=== PATIENT | male | born 1965 ===

== ENCOUNTER 2024-02-20 10:35 | Emergency (ER) | payer BC ==
[2024-02-20] MEDS ORDERED: Sodium Chloride 0.9% 10 ML Syringe FLUSH PRN (10:44)
[2024-02-20 10:56] LABS: BASOPHILS ABSOLUTE AUTO 0.02 K/uL (0.00-0.20); BASOPHILS PERCENT AUTO 0.5 % (0.0-2.0); EOSINOPHILS ABSOLUTE AUTO 0.11 K/uL (0.00-0.50); EOSINOPHILS PERCENT AUTO 2.9 % (0.0-5.0); HEMATOCRIT 42.5 % (39.0-49.0); HEMOGLOBIN 14.7 g/dL (13.1-16.8); LYMPHOCYTES ABSOLUTE AUTO 1.25 K/uL (0.50-3.50); LYMPHOCYTES PERCENT AUTO 33.3 % (10.0-50.0); MEAN CORPUSCULAR HEMOGLOBIN 33.9 pg (28.2-33.3); MEAN CORPUSCULAR HGB CONC 34.6 g/dL (31.7-36.0); MEAN CORPUSCULAR VOLUME 97.9 fL (84.0-98.0); MONOCYTES ABSOLUTE AUTO 0.84 K/uL (0.00-1.00); MONOCYTES PERCENT AUTO 22.4 % (2.0-14.0); NEUTROPHILS ABSOLUTE AUTO 1.53 K/uL (1.40-7.00); NEUTROPHILS PERCENT AUTO 40.9 % (45.0-80.0); PLATELET COUNT,PLT 178 K/uL (150-350); RED BLOOD CELL COUNT 4.34 M/uL (4.33-5.41); WHITE BLOOD CELL COUNT,WBC 3.8 K/uL (4.0-10.2)
[2024-02-20 11:15] LABS: ALANINE AMINOTRANSFERASE,ALT 79 U/L (12-78); ALBUMIN 3.5 g/dL (3.4-5.0); ALKALINE PHOSPHATASE 186 IU/L (46-116); ANION GAP 17.2 meq/L (7-15); ASPARTATE AMNIOTRANSFERASE,AST 184 U/L (15-37); BILIRUBIN TOTAL 0.5 mg/dL (0.2-1.0); BLOOD UREA NITROGEN,BUN 6 mg/dL (7-18); CALCIUM 8.2 mg/dL (8.5-10.1); CARBON DIOXIDE,CO2 25.1 mmol/L (21.0-32.0); CHLORIDE,CL 102 mmol/L (98-107); CREATININE 0.75 mg/dL (0.51-1.17); ESTIMATED GFR 105 mL/min (>=60); GLUCOSE RANDOM 121 mg/dL (70-99); POTASSIUM,K 3.3 mmol/L (3.5-5.1); PROTEIN TOTAL,TP 7.9 g/dL (6.4-8.2); SODIUM,NA 141 mmol/L (136-145)
[2024-02-20 11:22] LABS: PROTHROMBIN TIME 9.7 SEC (9.0-11.1)
[2024-02-20] MEDS: cloNIDine 0.1 MG Tab PO ONE (11:36)
[2024-02-20 11:38] LABS: PTT,PARTIAL THROMBOPLSTIN TIME 25.8 SEC (23.6-29.8)
[2024-02-20] MEDS: Thiamine 100 MG in Sodium Chloride 0.9% 100 ML IV ONE (12:19)
[2024-02-20] MEDS: Potassium Chloride 20 MEQ Tab.ER PO ONE (12:20)
[2024-02-20] MEDS: LORazepam 1 MG Tab PO ONE (12:21)
[2024-02-20] MEDS: Sodium Chloride 0.9% 1,000 ML IV ONE (12:21)
[2024-02-20] MEDS: Metoprolol Tartrate 25 MG Tab PO ONE (12:51)
[2024-02-20] MEDS: Metoprolol Succinate 50 MG Tab.ER PO ONE (14:34)
[2024-02-20] MEDS: PHENobarbital 64.8 MG Tab PO ONE (15:05)
[2024-02-20] MEDS: PHENobarbital 64.8 MG Tab PO SCH (15:52)
== END 2024-02-20 15:50 | disposition left against medical advice (07) ==
LOC: LL.ED 10:35
DX: G56.31 Lesion of radial nerve, right upper limb (principal); I10 Essential (primary) hypertension; F10.20 Alcohol dependence, uncomplicated; Z79.899 Other long term (current) drug therapy; Y90.6 Blood alcohol level of 120-199 mg/100 ml
CPT/HCPCS: 36415; 70450; 80053; 80307; 83735; 84484; 85025; 85610; 85730; 93010; 96365; 96366; 96367; 99284; A9270; J3411; J3475; J3490; J7030